=== PATIENT | female | born 1965 | race Caucasian/White ===

== ENCOUNTER 2023-06-21 08:58 | Outpatient (CLI) | payer OTHER, SELFPAY | END 2023-06-21 08:59 | disposition home or self-care (01) | LOC: NFLDREF 06-23 12:01 | PROVIDERS: PCP Emergency Medicine; Visit Provider Emergency Medicine | DX: Z13.1 Encounter for screening for diabetes mellitus (principal); Z13.220 Encounter for screening for lipoid disorders; Z13.6 Encounter for screening for cardiovascular disorders | CPT/HCPCS: 80053; 80061 ==

== ENCOUNTER 2024-09-27 09:29 | Outpatient (CLI) | payer BC, SELFPAY | END 2024-09-27 09:30 | disposition home or self-care (01) | PROVIDERS: PCP Emergency Medicine; Visit Provider Emergency Medicine | DX: I10 Essential (primary) hypertension (principal); F10.10 Alcohol abuse, uncomplicated; Z13.6 Encounter for screening for cardiovascular disorders | CPT/HCPCS: 80053; 80061 ==

== ENCOUNTER 2024-10-18 13:31 | Outpatient (CLI) | payer BC, SELFPAY ==
--- NOTE | 2024-10-18 14:00 | CRLHL7_ITS ---
For Patients: As a result of the Century Cures Act, medical imaging exams and procedure reports are released immediately into your electronic medical record. You may view this report before your referring provider. If you have questions, please contact your health care provider. DXA BONE MINERAL DENSITY STUDY Current height (in): 65. Weight (lb): 155. Menopause age: 56. Ethnicity: White. 1. Have you had a previous hip or vertebral fracture? No. 2. Have you had any fractures during your adult life which did not result from significant trauma (e.g., auto accident)? Yes. 3. Did either of your parents have a hip fracture? Yes. 4. Do you smoke? Yes. 5. Have you ever taken Glucocorticoids? No. 6. Do you have rheumatoid arthritis? No. 7. Do you have secondary osteoporosis? No. 8. Do you drink 3 or more alcoholic drinks per day? Yes. 9. Are you being treated for osteoporosis? Yes. 10. Have you ever taken any of the following medications: Actonel, Evista, Fosamax, Miacalcin, Reclast, Boniva, Forteo, HRT (i.e. estrogen/hormone therapy), Protelos, Prolia, Vitamin D, Calcium, other ??? please specify. ANSWER: Yes, Lisinopril. 11. Do you have any of the following medical conditions: Anorexia or bulimia, asthma or emphysema, end stage renal disease, hyperparathyroidism, any seizure disorders, cancer, inflammatory bowel diseases, hysterectomy, other ??? please specify. ANSWER: No. 12. What was your maximum height (inches)? 67. 13. Do you perform weight bearing exercise regularly? No. 14. Do you regularly consume dairy products? Yes. 15. Do you drink caffeinated beverages? No. 16. At what age did your period start? 14. 17. Are you premenopausal? No. 18. How many full term pregnancies have you had? 0. 19. Have you ever missed your period for more than 6 months in a row (not including or menopause)? No. TECHNIQUE: Bone mineral density study was performed using the [employer]. FINDINGS: The results of the study expressed as bone mineral density (BMD) are as follows: Lumbar spine L1 to L4: BMD: 0.707 g/cm2. T-score: -3.1. Z-score: -1.7. Neck Left: BMD: 0.576 g/cm2. T-score: -2.5. Z-score: -1.2. Right: BMD: 0.542 g/cm2. T-score: -2.8. Z-score: -1.5. Total Left: BMD: 0.708 g/cm2. T-score: -1.9. Z-score: -1.0. Right: BMD: 0.683 g/cm2. T-score: -2.1. Z-score: -1.2. IMPRESSION: Osteoporosis. Oma Becker M.D. Diagnostic Radiologist [email or web address] [email or web address] DW/Dictated by: Oma Becker MD @ 10/20/2024 7:29:00 AM (Electronically Signed)
--- NOTE | 2024-10-18 14:30 | CRLHL7_ITS ---
For Patients: As a result of the Century Cures Act, medical imaging exams and procedure reports are released immediately into your electronic medical record. You may view this report before your referring provider. If you have questions, please contact your health care provider. INDICATION: Right upper quadrant pain TECHNIQUE: 1.5 T MRI of the abdomen was performed with T1 weighted imaging; T2 weighted imaging; in and out of phase imaging; 3D MRCP imaging was obtained. No intravenous contrast administered. COMPARISON: None FINDINGS: Lungs: The lung bases are clear. No pleural or pericardial effusion. Liver: Homogeneous liver parenchyma. No hepatic masses. Biliary tree and gallbladder: No intrahepatic biliary dilation. Mildly dilated common bile duct measures up to 9 mm and smoothly tapers toward the ampulla. No evidence of choledocholithiasis. Fluid-filled gallbladder without stones. Spleen: Unremarkable Pancreas: Normal pancreatic parenchyma. No pancreatic masses. No pancreatic duct dilation. Absent ventral duct, a variant pancreatic divisum (06/20). Adrenal glands: Unremarkable. Kidneys and ureters: No renal masses or hydronephrosis. Left renal cyst measuring 1.1 cm. Scattered additional subcentimeter T2 hyperintensities too small to accurately characterize, but likely benign cysts. GI tract: No evidence of obstruction or inflammation. Vasculature: The IVC and aorta are normal in caliber. Lymph nodes: No lymphadenopathy. Abdominal wall: Unremarkable Pelvis: Suspected uterine fibroid measuring up to 2.8 cm, incompletely evaluated Bones: Bone marrow signal is unremarkable IMPRESSION: 1. Mildly dilated common bile duct measures up to 9 mm. No evidence of choledocholithiasis. The gallbladder is unremarkable. 2. Pancreatic divisum morphology. No pancreatic duct dilation. This is of unclear clinical significance relating to the patient`s symptoms. Dictated by Pat Naylor MD @ 10/18/2024 4:12:53 PM (Electronically Signed)
== END 2024-10-18 13:32 | disposition home or self-care (01) ==
LOC: RAD 13:32
PROVIDERS: PCP Emergency Medicine; Visit Provider Emergency Medicine
DX: K83.8 Other specified diseases of biliary tract (principal); R10.11 Right upper quadrant pain; Z13.820 Encounter for screening for osteoporosis; M81.0 Age-related osteoporosis without current pathological fracture; Z82.62 Family history of osteoporosis
CPT/HCPCS: 74181; 77080

== ENCOUNTER 2024-10-20 09:25 | Outpatient (CLI) | payer BC, SELFPAY ==
--- NOTE | 2024-10-20 09:45 | CRLHL7_ITS ---
For Patients: As a result of the Century Cures Act, medical imaging exams and procedure reports are released immediately into your electronic medical record. You may view this report before your referring provider. If you have questions, please contact your health care provider. INDICATION: BILATERAL SCREENING MAMMOGRAM, ASYMPTOMATIC 59 Y/O FEMALE COMPARISON: Baseline TECHNIQUE: CC and MLO views were obtained. These mammographic images have been obtained using full-field digital technique. These mammographic images were interpreted with the benefit of computer aided detection and tomosynthesis. BREAST COMPOSITION: The breasts are almost entirely fatty. FINDINGS: No suspicious findings. ASSESSMENT: BI-RADS 2 Benign RECOMMENDATION: Annual screening mammogram. A lay language report of this examination will be provided to the patient. Dictated by: Fabiano Dang MD @ 10/26/2024 13:15:53 (Electronically Signed)
== END 2024-10-20 09:26 | disposition home or self-care (01) ==
LOC: MAMMO 09:25
PROVIDERS: PCP Emergency Medicine; Visit Provider Emergency Medicine
DX: Z12.31 Encounter for screening mammogram for malignant neoplasm of breast (principal)
CPT/HCPCS: 77063; 77067

== ENCOUNTER 2024-10-31 16:28 | Outpatient (CLI) | payer BC, SELFPAY | END 2024-10-31 16:29 | disposition home or self-care (01) | PROVIDERS: PCP Emergency Medicine; Visit Provider Emergency Medicine | DX: M81.0 Age-related osteoporosis without current pathological fracture (principal); D58.2 Other hemoglobinopathies | CPT/HCPCS: 82306; 82728; 83540; 83550; 84100 ==

== ENCOUNTER 2024-11-28 15:36 | Outpatient (CLI) | payer BC, SELFPAY | END 2024-11-28 15:37 | disposition home or self-care (01) | LOC: NFLDREF 12-01 12:42 | PROVIDERS: PCP Emergency Medicine; Referring Provider Emergency Medicine; Visit Provider Emergency Medicine | DX: M81.0 Age-related osteoporosis without current pathological fracture (principal); E55.9 Vitamin D deficiency, unspecified | CPT/HCPCS: 82306 ==